=== PATIENT | male | born 1980 | race Caucasian/White ===

== ENCOUNTER 2021-01-29 13:37 | Inpatient (IN) | payer MEDICAID ==
[~2021-01-29] VITALS: Ht 190.5 cm; Wt 102.9 kg
[2021-01-29] MEDS ORDERED: TRAZ-257 PO (20:47)
[2021-01-29] MEDS ORDERED: PROP10TA73 PO (20:47)
[2021-01-29] MEDS ORDERED: SERT-158 PO (20:47)
[2021-01-29 21:06] VITALS: BP 114/64
[2021-01-29 22:08] VITALS: BP 109/72
[2021-01-30 05:55] VITALS: BP 112/77
[2021-01-30] MEDS ORDERED: METHADONE HCL 10 MG TABLET PO SCH (06:30)
[2021-01-30] MEDS ORDERED: OMEPRAZOLE 20 MG CAPSULE PO PRN (07:00)
[2021-01-30] MEDS ORDERED: BENZOCAINE/MENTHOL LOZENGE PO PRN (07:00)
[2021-01-30] MEDS ORDERED: BACITRACIN 28 GM OINTMENT TP PRN (07:00)
[2021-01-30] MEDS ORDERED: ONDANSETRON HCL 4 MG TABLET PO PRN (07:00)
[2021-01-30] MEDS ORDERED: DOCUSATE SODIUM 100 MG CAPSULE PO PRN (07:00)
[2021-01-30] MEDS ORDERED: ACETAMINOPHEN 325 MG TABLET PO PRN (07:00)
[2021-01-30] MEDS ORDERED: PETROLATUM,WHITE 28 GM JELLY TP PRN (07:00)
[2021-01-30] MEDS ORDERED: ALBUTEROL SULFATE HFA 90 MCG/PUFF 8 GM INHALER IH PRN (07:00)
[2021-01-30] MEDS ORDERED: CloNIDine HCL 0.1 MG TABLET PO PRN (07:00)
[2021-01-30] MEDS ORDERED: MAGNESIUM HYDROXIDE SUSPENSION 30 ML UDCUP PO PRN (07:00)
[2021-01-30] MEDS ORDERED: IBUPROFEN 600 MG TABLET PO PRN (07:00)
[2021-01-30] MEDS ORDERED: LOPERAMIDE HCL 2 MG CAPSULE PO PRN (07:00)
[2021-01-30] MEDS ORDERED: MAG HYDROX/AL HYDROX/SIMETH ES 30 ML SUSPENSION UDCUP PO PRN (07:00)
[2021-01-30 07:56] LABS: BASOPHILS % (AUTO) 0.4 % (0.0-2.0); HEMATOCRIT 43.8 % (41-53); HEMOGLOBIN 14.8 g/dL (13.5-17.5); LYMPHOCYTES % (AUTO) 35.5 % (22.0-44.0); MEAN CORPUSCULAR HGB CONC 33.8 G/dL (31.0-37.0); MEAN CORPUSCULAR VOLUME 89 fL (80-100); MONOCYTES # (AUTO) 0.4 K/uL (0.1-1.0); MONOCYTES % (AUTO) 7.3 % (2.0-9.0); NEUTROPHILS # (AUTO) 3.1 K/uL (1.8-7.7); NEUTROPHILS % (AUTO) 54.8 % (40.0-70.0); PLATELET COUNT (AUTO) 146 K/uL (150-450); RED BLOOD CELL COUNT(AUTO) 4.93 MIL/uL (4.50-5.90); RED CELL DISTRIBUTION WIDTH 14.1 % (11.5-14.5)
[2021-01-30 08:14] LABS: HEMOGLOBIN A1C 5.5 % (3.8-5.6)
[2021-01-30 08:29] LABS: ALANINE AMINOTRANSFERASE 24 U/L (12-78); ALBUMIN 3.5 g/dL (3.4-5.0); ALKALINE PHOSPHATASE 84 U/L (46-116); ANION GAP 7 mmol/L (8-16); ASPARTATE AMINOTRANSFERASE 18 U/L (15-37); BILIRUBIN,TOTAL 0.6 mg/dL (0.1-1.0); CALCIUM, TOTAL 8.6 mg/dL (8.8-10.5); CARBON DIOXIDE 29 mmol/L (22-29); CHLORIDE 102 mmol/L (98-107); CHOL/HDL RATIO 5.6 (4.2-7.3); CHOLESTEROL 178 mg/dL (131-200); CREATININE 0.81 mg/dL (0.60-1.30); FREE T4 (FREE THYROXINE) 0.75 ng/dL (0.76-1.46); GLOMERULAR FILTR. RATE CALC > 60 mL/min (>60); GLUCOSE,RANDOM 78 mg/dL (70-110); HDL CHOLESTEROL 32 mg/dL (40-60); LDL CHOL (CALC.) 133 mg/dL (0-130); POTASSIUM 3.8 mmol/L (3.5-5.1); SODIUM SERUM 138 mmol/L (136-145); THYROID STIMULATING HORMONE 1.53 uIU/mL (0.36-3.74); TOTAL PROTEIN, SERUM 7.1 g/dL (6.4-8.2); TRIGLYCERIDES 67 mg/dL (15-150); UREA NITROGEN, BLOOD 14 mg/dL (7-18)
[2021-01-30 08:36] VITALS: BP 101/54
[2021-01-30 10:00] VITALS: BP 106/71
[2021-01-30] MEDS: METHADONE HCL 10 MG TABLET PO SCH (11:36)
[2021-01-30] MEDS: PROPRANOLOL HCL 10 MG TABLET PO SCH (11:36)
[2021-01-30 16:13] VITALS: BP 107/60
[2021-01-30] MEDS: LORazepam 2 MG TABLET PO PRN (20:05)
[2021-01-30] MEDS ORDERED: TraZODone HCL 100 MG TABLET PO SCH (21:00)
[2021-01-30] MEDS: ZOLPIDEM TARTRATE 10 MG TABLET PO PRN (21:25)
[2021-01-31 00:14] VITALS: BP 109/62
[2021-01-31 08:07] VITALS: BP 115/68
[2021-01-31] MEDS: PROPRANOLOL HCL 10 MG TABLET PO SCH (09:18)
[2021-01-31] MEDS: SERTRALINE HCL 50 MG TABLET PO SCH (09:18)
[2021-01-31] MEDS: METHADONE HCL 10 MG TABLET PO SCH (09:19)
[2021-01-31] MEDS: LORazepam 2 MG TABLET PO PRN ×2 (12:23→21:40)
[2021-01-31 16:16] VITALS: BP 104/66
[2021-02-01 04:05] VITALS: BP 108/62
[2021-02-01 08:26] VITALS: BP 110/62
[2021-02-01] MEDS: METHADONE HCL 10 MG TABLET PO SCH (08:44)
[2021-02-01] MEDS: SERTRALINE HCL 50 MG TABLET PO SCH (08:44)
[2021-02-01] MEDS: PROPRANOLOL HCL 10 MG TABLET PO SCH (08:44)
[2021-02-01] MEDS: LORazepam 2 MG TABLET PO PRN ×3 (09:30→19:57)
[2021-02-01 17:45] VITALS: BP 110/66
[2021-02-01] MEDS: ZOLPIDEM TARTRATE 10 MG TABLET PO PRN (20:46)
[2021-02-02 06:29] VITALS: BP 119/62
[2021-02-02 08:10] VITALS: BP 102/66
[2021-02-02] MEDS: SERTRALINE HCL 50 MG TABLET PO SCH (08:40)
[2021-02-02] MEDS: METHADONE HCL 10 MG TABLET PO SCH (08:40)
[2021-02-02] MEDS: PROPRANOLOL HCL 10 MG TABLET PO SCH (08:40)
[2021-02-02] MEDS: LORazepam 2 MG TABLET PO PRN ×2 (08:40→17:09)
[2021-02-02] MEDS: NICOTINE POLACRILEX 2 MG LOZENGE PO PRN ×2 (12:42→17:08)
[2021-02-02 16:33] VITALS: BP 113/73
[2021-02-03 01:05] VITALS: BP 117/63
[2021-02-03] MEDS: LORazepam 2 MG TABLET PO PRN ×4 (01:31→20:03)
[2021-02-03] MEDS: METHADONE HCL 10 MG TABLET PO SCH (08:13)
[2021-02-03] MEDS: SERTRALINE HCL 50 MG TABLET PO SCH (08:13)
[2021-02-03] MEDS: PROPRANOLOL HCL 10 MG TABLET PO SCH (08:13)
[2021-02-03] MEDS: NICOTINE POLACRILEX 2 MG LOZENGE PO PRN ×3 (08:13→21:13)
[2021-02-03 09:19] VITALS: BP 126/80
[2021-02-03 16:29] VITALS: BP 113/67
[2021-02-03] MEDS: ZOLPIDEM TARTRATE 10 MG TABLET PO PRN (21:12)
[2021-02-04 00:38] VITALS: BP 117/69
[2021-02-04 07:13] LABS: COVID AG,FIA SOURCE NASOPHARYNGEAL
[2021-02-04] MEDS: SERTRALINE HCL 50 MG TABLET PO SCH (08:21)
[2021-02-04] MEDS: PROPRANOLOL HCL 10 MG TABLET PO SCH (08:21)
[2021-02-04] MEDS: METHADONE HCL 10 MG TABLET PO SCH (08:21)
[2021-02-04] MEDS: NICOTINE POLACRILEX 2 MG LOZENGE PO PRN ×2 (08:23→13:32)
[2021-02-04 08:32] VITALS: BP 124/85
[2021-02-04] MEDS: LORazepam 2 MG TABLET PO PRN (09:52)
[2021-02-04 16:44] VITALS: BP 102/64
[2021-02-05] MEDS: LORazepam 2 MG TABLET PO PRN ×3 (03:51→19:09)
[2021-02-05 05:52] VITALS: BP 121/93
[2021-02-05] MEDS ORDERED: METHADONE HCL 10 MG TABLET PO SCH (06:15)
[2021-02-05] MEDS: SERTRALINE HCL 50 MG TABLET PO SCH (08:11)
[2021-02-05] MEDS: PROPRANOLOL HCL 10 MG TABLET PO SCH (08:11)
[2021-02-05] MEDS: NICOTINE POLACRILEX 2 MG LOZENGE PO PRN (08:15)
[2021-02-05 08:31] VITALS: BP 124/79
[2021-02-05 16:22] VITALS: BP 102/61
[2021-02-05] MEDS: HALOPERIDOL 5 MG TABLET PO PRN (19:09)
[2021-02-05] MEDS: ZOLPIDEM TARTRATE 10 MG TABLET PO PRN (21:38)
[2021-02-06] MEDS: METHADONE HCL 10 MG TABLET PO SCH (05:57)
[2021-02-06] MEDS: LORazepam 2 MG TABLET PO PRN ×2 (06:49→17:10)
[2021-02-06] MEDS: NICOTINE POLACRILEX 2 MG LOZENGE PO PRN ×2 (06:49→17:10)
[2021-02-06 07:14] VITALS: BP 110/68
[2021-02-06] MEDS: PROPRANOLOL HCL 10 MG TABLET PO SCH (08:18)
[2021-02-06] MEDS: SERTRALINE HCL 50 MG TABLET PO SCH (08:18)
[2021-02-06 08:46] VITALS: BP 120/77
[2021-02-06 16:37] VITALS: BP 105/60
[2021-02-06] MEDS: ZOLPIDEM TARTRATE 10 MG TABLET PO PRN (20:09)
[2021-02-07 05:24] VITALS: BP 117/67
[2021-02-07] MEDS: METHADONE HCL 10 MG TABLET PO SCH (05:30)
[2021-02-07] MEDS: LORazepam 2 MG TABLET PO PRN ×3 (06:59→17:35)
[2021-02-07] MEDS: NICOTINE POLACRILEX 2 MG LOZENGE PO PRN ×3 (07:06→17:35)
[2021-02-07] MEDS: PROPRANOLOL HCL 10 MG TABLET PO SCH (08:04)
[2021-02-07] MEDS: SERTRALINE HCL 50 MG TABLET PO SCH (08:04)
[2021-02-07 08:26] VITALS: BP 123/83
[2021-02-07] MEDS: ZOLPIDEM TARTRATE 10 MG TABLET PO PRN (20:19)
[2021-02-07 20:39] VITALS: BP 105/71
[2021-02-08] MEDS: METHADONE HCL 10 MG TABLET PO SCH (05:54)
[2021-02-08 06:03] VITALS: BP 116/76
[2021-02-08] MEDS: LORazepam 2 MG TABLET PO PRN ×2 (06:45→11:53)
[2021-02-08] MEDS: NICOTINE POLACRILEX 2 MG LOZENGE PO PRN ×2 (06:59→10:33)
[2021-02-08 08:32] VITALS: BP 116/80
[2021-02-08] MEDS: SERTRALINE HCL 100 MG TABLET PO SCH (09:20)
[2021-02-08] MEDS: PROPRANOLOL HCL 10 MG TABLET PO SCH (10:23)
[2021-02-08 16:10] VITALS: BP 104/62
[2021-02-08] MEDS: ZOLPIDEM TARTRATE 10 MG TABLET PO PRN (22:10)
[2021-02-09 00:51] VITALS: BP 112/76
[2021-02-09] MEDS: METHADONE HCL 10 MG TABLET PO SCH (05:49)
[2021-02-09 07:21] LABS: COVID AG,FIA SOURCE NASOPHARYNGEAL
[2021-02-09] MEDS: LORazepam 2 MG TABLET PO PRN ×2 (07:59→16:42)
[2021-02-09] MEDS: NICOTINE POLACRILEX 2 MG LOZENGE PO PRN ×3 (07:59→16:43)
[2021-02-09] MEDS: SERTRALINE HCL 100 MG TABLET PO SCH (08:00)
[2021-02-09] MEDS: PROPRANOLOL HCL 10 MG TABLET PO SCH (08:00)
[2021-02-09 09:13] VITALS: BP 105/72
[2021-02-09 16:27] VITALS: BP 113/62
[2021-02-10 00:01] VITALS: BP 108/75
[2021-02-10] MEDS: ZOLPIDEM TARTRATE 10 MG TABLET PO PRN ×2 (00:04→20:13)
[2021-02-10] MEDS: METHADONE HCL 10 MG TABLET PO SCH (05:18)
[2021-02-10] MEDS: LORazepam 2 MG TABLET PO PRN ×2 (07:16→16:56)
[2021-02-10] MEDS: NICOTINE POLACRILEX 2 MG LOZENGE PO PRN ×3 (08:22→16:58)
[2021-02-10 08:29] VITALS: BP 134/80
[2021-02-10] MEDS: SERTRALINE HCL 100 MG TABLET PO SCH (09:00)
[2021-02-10] MEDS: VENLAFAXINE HCL 75 MG ER CAPSULE PO SCH (09:03)
[2021-02-10] MEDS: PROPRANOLOL HCL 10 MG TABLET PO SCH (09:03)
[2021-02-10 16:15] VITALS: BP 111/69
[2021-02-11] MEDS: METHADONE HCL 10 MG TABLET PO SCH (05:14)
[2021-02-11 05:38] VITALS: BP 124/75
[2021-02-11] MEDS: LORazepam 2 MG TABLET PO PRN ×3 (06:52→10:53)
[2021-02-11] MEDS: NICOTINE POLACRILEX 2 MG LOZENGE PO PRN (06:52)
[2021-02-11] MEDS: VENLAFAXINE HCL 75 MG ER CAPSULE PO SCH (08:15)
[2021-02-11] MEDS: SERTRALINE HCL 100 MG TABLET PO SCH (08:15)
[2021-02-11] MEDS: PROPRANOLOL HCL 10 MG TABLET PO SCH (08:16)
[2021-02-11 08:52] VITALS: BP 116/76
[2021-02-11 16:21] VITALS: BP 112/67
[2021-02-12 01:22] VITALS: BP 110/71
[2021-02-12] MEDS: METHADONE HCL 10 MG TABLET PO SCH (05:28)
[2021-02-12] MEDS: LORazepam 2 MG TABLET PO PRN ×2 (06:59→16:58)
[2021-02-12] MEDS: NICOTINE POLACRILEX 2 MG LOZENGE PO PRN ×2 (08:19→17:11)
[2021-02-12] MEDS: VENLAFAXINE HCL 75 MG ER CAPSULE PO SCH (09:04)
[2021-02-12] MEDS: PROPRANOLOL HCL 10 MG TABLET PO SCH (09:04)
[2021-02-12] MEDS: SERTRALINE HCL 100 MG TABLET PO SCH (09:04)
[2021-02-12 09:32] VITALS: BP 122/79
[2021-02-12 16:23] VITALS: BP 131/81
[2021-02-12] MEDS: ZOLPIDEM TARTRATE 10 MG TABLET PO PRN (20:27)
[2021-02-13] MEDS: METHADONE HCL 10 MG TABLET PO SCH (04:20)
[2021-02-13 04:29] VITALS: BP 130/80
[2021-02-13] MEDS: LORazepam 2 MG TABLET PO PRN ×2 (06:16→13:05)
[2021-02-13] MEDS: NICOTINE POLACRILEX 2 MG LOZENGE PO PRN ×4 (06:16→19:14)
[2021-02-13 08:15] VITALS: BP 113/69
[2021-02-13] MEDS: VENLAFAXINE HCL 75 MG ER CAPSULE PO SCH (08:25)
[2021-02-13] MEDS: SERTRALINE HCL 100 MG TABLET PO SCH (08:25)
[2021-02-13] MEDS: PROPRANOLOL HCL 10 MG TABLET PO SCH (08:33)
[2021-02-13 16:27] VITALS: BP 130/86
[2021-02-13] MEDS: ZOLPIDEM TARTRATE 10 MG TABLET PO PRN (20:22)
[2021-02-14 00:21] VITALS: BP 107/76
[2021-02-14] MEDS: METHADONE HCL 10 MG TABLET PO SCH (05:31)
[2021-02-14] MEDS: LORazepam 2 MG TABLET PO PRN ×2 (07:03→11:49)
[2021-02-14] MEDS: NICOTINE POLACRILEX 2 MG LOZENGE PO PRN ×3 (07:56→17:20)
[2021-02-14] MEDS: SERTRALINE HCL 100 MG TABLET PO SCH (08:05)
[2021-02-14] MEDS: PROPRANOLOL HCL 10 MG TABLET PO SCH (08:05)
[2021-02-14] MEDS: VENLAFAXINE HCL 75 MG ER CAPSULE PO SCH (08:05)
[2021-02-14 09:10] VITALS: BP 122/75
[2021-02-14 16:12] VITALS: BP 113/65
[2021-02-14] MEDS: LamoTRIgine 25 MG TABLET PO SCH (17:07)
[2021-02-14] MEDS: ZOLPIDEM TARTRATE 10 MG TABLET PO PRN (20:10)
[2021-02-15] MEDS: METHADONE HCL 10 MG TABLET PO SCH (05:18)
[2021-02-15] MEDS: NICOTINE POLACRILEX 2 MG LOZENGE PO PRN ×3 (05:19→11:02)
[2021-02-15 06:18] VITALS: BP 120/74
[2021-02-15 06:21] VITALS: BP 120/84
[2021-02-15] MEDS: LORazepam 2 MG TABLET PO PRN ×3 (06:23→16:45)
[2021-02-15] MEDS: SERTRALINE HCL 100 MG TABLET PO SCH (08:10)
[2021-02-15] MEDS: VENLAFAXINE HCL 75 MG ER CAPSULE PO SCH (08:10)
[2021-02-15] MEDS: LamoTRIgine 25 MG TABLET PO SCH ×2 (08:11→16:42)
[2021-02-15] MEDS: PROPRANOLOL HCL 10 MG TABLET PO SCH (08:11)
[2021-02-15 08:45] VITALS: BP 134/87
[2021-02-15 16:40] VITALS: BP 110/66
[2021-02-15] MEDS: ZOLPIDEM TARTRATE 10 MG TABLET PO PRN (19:50)
[2021-02-16 00:19] VITALS: BP 110/73
[2021-02-16] MEDS: LORazepam 2 MG TABLET PO PRN ×3 (00:23→13:26)
[2021-02-16] MEDS: METHADONE HCL 10 MG TABLET PO SCH (05:01)
[2021-02-16] MEDS: NICOTINE POLACRILEX 2 MG LOZENGE PO PRN ×3 (05:02→09:55)
[2021-02-16 06:24] VITALS: BP 121/71
[2021-02-16 07:20] LABS: COVID AG,FIA SOURCE NASOPHARYNGEAL
[2021-02-16] MEDS: VENLAFAXINE HCL 75 MG ER CAPSULE PO SCH (08:06)
[2021-02-16] MEDS: LamoTRIgine 25 MG TABLET PO SCH (08:07)
[2021-02-16 08:10] VITALS: BP 139/76
[2021-02-16] MEDS: PROPRANOLOL HCL 10 MG TABLET PO SCH (08:18)
[2021-02-16] MEDS: SERTRALINE HCL 100 MG TABLET PO SCH (09:40)
[2021-02-16] MEDS: HALOPERIDOL 5 MG TABLET PO PRN (11:27)
[2021-02-16] MEDS ORDERED: PROP10TA73 PO (13:09)
[2021-02-16] MEDS ORDERED: VENL-67 PO (13:10)
[2021-02-16] MEDS ORDERED: LAMO25TA25 PO (13:10)
[2021-02-16] MEDS ORDERED: SERT-162 PO (13:11)
== END 2021-02-16 14:30 | disposition home or self-care (01) | DRG 750 ==
LOC: B2S 20:40
PROVIDERS: ADMIT Psychiatry & Neurology Psychiatry; ATTEND Psychiatry & Neurology Psychiatry
DX: F25.9 Schizoaffective disorder, unspecified (principal); Z59.0 Homelessness; R45.851 Suicidal ideations; G89.29 Other chronic pain; Z20.822 Contact with and (suspected) exposure to COVID-19; F11.10 Opioid abuse, uncomplicated; F41.9 Anxiety disorder, unspecified
CPT/HCPCS: 80053; 80061; 83036; 84436; 84439; 84443; 85025; 86592; 87081; A9575; G0480

== ENCOUNTER 2021-02-27 12:34 | Inpatient (IN) | payer MEDICAID ==
[~2021-02-27] VITALS: Ht 190.5 cm; Wt 105.7 kg
[~2021-02-27 12:34] MED LIST: LAMO25TA25 PO; PROP10TA73 PO; SERT-162 PO; VENL-67 PO
[2021-02-27] MEDS ORDERED: HALOPERIDOL 5 MG TABLET PO PRN (13:00)
[2021-02-27] MEDS ORDERED: LORazepam 2 MG TABLET PO PRN (13:00)
[2021-02-27 17:32] VITALS: BP 120/77
[2021-02-27 17:33] VITALS: BP 120/77
[2021-02-27] MEDS ORDERED: BENZOCAINE/MENTHOL LOZENGE PO PRN (20:45)
[2021-02-27] MEDS ORDERED: PETROLATUM,WHITE 28 GM JELLY TP PRN (20:45)
[2021-02-27] MEDS ORDERED: IBUPROFEN 600 MG TABLET PO PRN (20:45)
[2021-02-27] MEDS ORDERED: LOPERAMIDE HCL 2 MG CAPSULE PO PRN (20:45)
[2021-02-27] MEDS ORDERED: ALBUTEROL SULFATE HFA 90 MCG/PUFF 8 GM INHALER IH PRN (20:45)
[2021-02-27] MEDS ORDERED: MAGNESIUM HYDROXIDE SUSPENSION 30 ML UDCUP PO PRN (20:45)
[2021-02-27] MEDS ORDERED: OMEPRAZOLE 20 MG CAPSULE PO PRN (20:45)
[2021-02-27] MEDS ORDERED: CloNIDine HCL 0.1 MG TABLET PO PRN (20:45)
[2021-02-27] MEDS ORDERED: ACETAMINOPHEN 325 MG TABLET PO PRN (20:45)
[2021-02-27] MEDS ORDERED: BACITRACIN 28 GM OINTMENT TP PRN (20:45)
[2021-02-27] MEDS ORDERED: ONDANSETRON HCL 4 MG TABLET PO PRN (20:45)
[2021-02-28 00:36] VITALS: BP 123/78
[2021-02-28 06:40] VITALS: BP 118/70
[2021-02-28 07:39] LABS: BASOPHILS % (AUTO) 0.3 % (0.0-2.0); EOSINOPHILS % (AUTO) 1.7 % (1.0-6.0); HEMATOCRIT 46.3 % (41-53); HEMOGLOBIN 15.6 g/dL (13.5-17.5); LYMPHOCYTES # (AUTO) 1.8 K/uL (1.0-4.8); LYMPHOCYTES % (AUTO) 24.6 % (22.0-44.0); MEAN CORPUSCULAR HEMOGLOBIN 29.7 pg (26.0-34.0); MEAN CORPUSCULAR HGB CONC 33.7 G/dL (31.0-37.0); MEAN CORPUSCULAR VOLUME 88 fL (80-100); MONOCYTES # (AUTO) 0.5 K/uL (0.1-1.0); MONOCYTES % (AUTO) 7.1 % (2.0-9.0); NEUTROPHILS # (AUTO) 4.9 K/uL (1.8-7.7); NEUTROPHILS % (AUTO) 66.3 % (40.0-70.0); PLATELET COUNT (AUTO) 167 K/uL (150-450); RED BLOOD CELL COUNT(AUTO) 5.26 MIL/uL (4.50-5.90); RED CELL DISTRIBUTION WIDTH 13.5 % (11.5-14.5)
[2021-02-28 08:10] VITALS: BP 112/76
[2021-02-28 08:10] LABS: ALANINE AMINOTRANSFERASE 24 U/L (12-78); ALBUMIN 3.5 g/dL (3.4-5.0); ALKALINE PHOSPHATASE 95 U/L (46-116); ANION GAP 8 mmol/L (8-16); ASPARTATE AMINOTRANSFERASE 18 U/L (15-37); BILIRUBIN,TOTAL 1.1 mg/dL (0.1-1.0); CALCIUM, TOTAL 8.4 mg/dL (8.8-10.5); CARBON DIOXIDE 29 mmol/L (22-29); CHLORIDE 103 mmol/L (98-107); CHOL/HDL RATIO 6.3 (4.2-7.3); CHOLESTEROL 228 mg/dL (131-200); CREATININE 0.67 mg/dL (0.60-1.30); FREE T4 (FREE THYROXINE) 1.04 ng/dL (0.76-1.46); GLOMERULAR FILTR. RATE CALC > 60 mL/min (>60); GLUCOSE,RANDOM 88 mg/dL (70-110); HDL CHOLESTEROL 36 mg/dL (40-60); LDL CHOL (CALC.) 174 mg/dL (0-130); POTASSIUM 3.8 mmol/L (3.5-5.1); SODIUM SERUM 140 mmol/L (136-145); THYROID STIMULATING HORMONE 0.45 uIU/mL (0.36-3.74); TOTAL PROTEIN, SERUM 7.4 g/dL (6.4-8.2); TRIGLYCERIDES 88 mg/dL (15-150); UREA NITROGEN, BLOOD 13 mg/dL (7-18)
[2021-02-28] MEDS ORDERED: NICOTINE 21 MG/24 HOUR PATCH TD SCH (09:00)
[2021-02-28] MEDS ORDERED: METHADONE HCL 10 MG TABLET PO ONE (09:00)
[2021-02-28] MEDS: LamoTRIgine 25 MG TABLET PO SCH ×2 (09:11→17:02)
[2021-02-28] MEDS: SERTRALINE HCL 100 MG TABLET PO SCH (09:11)
[2021-02-28] MEDS: DOCUSATE SODIUM 100 MG CAPSULE PO PRN (10:19)
[2021-02-28] MEDS: MAG HYDROX/AL HYDROX/SIMETH ES 30 ML SUSPENSION UDCUP PO PRN (10:19)
[2021-02-28] MEDS: LORazepam 1 MG TABLET PO PRN ×2 (12:31→16:45)
[2021-02-28 16:25] VITALS: BP 108/73
[2021-02-28] MEDS: ZOLPIDEM TARTRATE 10 MG TABLET PO PRN (19:50)
[2021-03-01 02:00] VITALS: BP 119/75
[2021-03-01] MEDS ORDERED: METHADONE HCL 10 MG TABLET PO SCH (05:00)
[2021-03-01 06:35] VITALS: BP 129/93
[2021-03-01] MEDS: LORazepam 1 MG TABLET PO PRN ×2 (06:38→11:38)
[2021-03-01 08:45] VITALS: BP 132/83
[2021-03-01] MEDS: LamoTRIgine 25 MG TABLET PO SCH ×2 (08:46→16:40)
[2021-03-01] MEDS: SERTRALINE HCL 100 MG TABLET PO SCH ×2 (08:46→09:00)
[2021-03-01] MEDS: NICOTINE POLACRILEX 2 MG LOZENGE PO PRN ×2 (11:38→17:58)
[2021-03-01] MEDS ORDERED: QUEtiapine FUMARATE 100 MG TABLET PO PRN (12:00)
[2021-03-01] MEDS ORDERED: GABAPENTIN 300 MG CAPSULE PO SCH (13:00)
[2021-03-01] MEDS: ACAMPROSATE CALCIUM 333 MG DR TABLET PO SCH ×2 (13:43→16:40)
[2021-03-01] MEDS: METHADONE HCL 10 MG TABLET PO SCH (13:43)
[2021-03-01 13:46] VITALS: BP 127/90
[2021-03-01] MEDS ORDERED: LORazepam 2 MG TABLET PO PRN (15:03)
[2021-03-01 16:22] VITALS: BP 151/90
[2021-03-01] MEDS: PROPRANOLOL HCL 10 MG TABLET PO SCH (16:40)
[2021-03-01] MEDS: GABAPENTIN 300 MG CAPSULE PO SCH ×2 (16:40→20:42)
[2021-03-01] MEDS: MELATONIN 5 MG TABLET PO SCH (20:43)
[2021-03-01] MEDS: OMEGA-3/DHA/EPA/FISH OIL 1,000 MG CAPSULE PO SCH (20:43)
[2021-03-01] MEDS: PARoxetine HCL 20 MG TABLET PO SCH (20:45)
[2021-03-02] VITALS (9 sets, daily range): BP systolic 112–136; BP diastolic 63–93
[2021-03-02] MEDS: METHADONE HCL 10 MG TABLET PO SCH (05:14)
[2021-03-02] MEDS: NICOTINE POLACRILEX 2 MG LOZENGE PO PRN ×2 (06:04→08:37)
[2021-03-02] MEDS: GABAPENTIN 300 MG CAPSULE PO PRN (06:04)
[2021-03-02] MEDS: ACAMPROSATE CALCIUM 333 MG DR TABLET PO SCH ×3 (08:26→16:44)
[2021-03-02] MEDS: PROPRANOLOL HCL 10 MG TABLET PO SCH ×2 (08:27→16:45)
[2021-03-02] MEDS: GABAPENTIN 300 MG CAPSULE PO SCH ×4 (08:28→20:42)
[2021-03-02] MEDS: LamoTRIgine 25 MG TABLET PO SCH ×2 (08:29→16:45)
[2021-03-02] MEDS ORDERED: DULoxetine HCL 20 MG CAPSULE PO SCH (09:00)
[2021-03-02] MEDS ORDERED: LORazepam 2 MG TABLET PO ONE (14:30)
[2021-03-02] MEDS ORDERED: LORazepam 2 MG TABLET PO PRN (14:30)
[2021-03-02] MEDS: OMEGA-3/DHA/EPA/FISH OIL 1,000 MG CAPSULE PO SCH (20:39)
[2021-03-02] MEDS: PARoxetine HCL 20 MG TABLET PO SCH (20:39)
[2021-03-02] MEDS: MELATONIN 5 MG TABLET PO SCH (20:39)
[2021-03-02] MEDS: ZOLPIDEM TARTRATE 10 MG TABLET PO PRN (20:45)
[2021-03-03 02:36] VITALS: BP 123/69
[2021-03-03 02:37] VITALS: BP 123/69
[2021-03-03] MEDS: METHADONE HCL 10 MG TABLET PO SCH (05:18)
[2021-03-03] MEDS: NICOTINE POLACRILEX 2 MG LOZENGE PO PRN ×5 (06:17→20:45)
[2021-03-03 06:45] VITALS: BP 133/80
[2021-03-03] MEDS: ACAMPROSATE CALCIUM 333 MG DR TABLET PO SCH ×3 (08:14→16:52)
[2021-03-03 08:15] VITALS: BP 124/78
[2021-03-03] MEDS: GABAPENTIN 300 MG CAPSULE PO SCH ×4 (08:15→20:43)
[2021-03-03] MEDS: LORazepam 2 MG TABLET PO SCH ×4 (08:16→20:40)
[2021-03-03] MEDS: LamoTRIgine 25 MG TABLET PO SCH ×2 (08:16→16:55)
[2021-03-03] MEDS: PROPRANOLOL HCL 10 MG TABLET PO SCH ×2 (08:16→16:53)
[2021-03-03] MEDS: DOCUSATE SODIUM 100 MG CAPSULE PO PRN (09:25)
[2021-03-03 16:15] VITALS: BP 126/77
[2021-03-03] MEDS: MELATONIN 5 MG TABLET PO SCH (20:40)
[2021-03-03] MEDS: OMEGA-3/DHA/EPA/FISH OIL 1,000 MG CAPSULE PO SCH (20:40)
[2021-03-03] MEDS: PARoxetine HCL 20 MG TABLET PO SCH (20:40)
[2021-03-03] MEDS: ZOLPIDEM TARTRATE 10 MG TABLET PO PRN (21:20)
[2021-03-04 02:30] VITALS: BP 123/93
[2021-03-04] MEDS: METHADONE HCL 10 MG TABLET PO SCH (05:15)
[2021-03-04] MEDS: NICOTINE POLACRILEX 2 MG LOZENGE PO PRN ×4 (05:32→12:09)
[2021-03-04] MEDS: LORazepam 2 MG TABLET PO PRN (05:32)
[2021-03-04 07:26] LABS: COVID AG,FIA SOURCE NASOPHARYNGEAL
[2021-03-04] MEDS: ACAMPROSATE CALCIUM 333 MG DR TABLET PO SCH ×3 (08:02→16:53)
[2021-03-04] MEDS: LORazepam 2 MG TABLET PO SCH ×4 (08:03→20:18)
[2021-03-04] MEDS: LamoTRIgine 25 MG TABLET PO SCH ×2 (08:03→16:53)
[2021-03-04] MEDS: GABAPENTIN 300 MG CAPSULE PO SCH ×2 (08:03→12:08)
[2021-03-04] MEDS: PROPRANOLOL HCL 10 MG TABLET PO SCH ×2 (08:03→16:53)
[2021-03-04 08:05] VITALS: BP 116/68
[2021-03-04 08:29] VITALS: BP 116/68
[2021-03-04 16:31] VITALS: BP 112/64
[2021-03-04] MEDS: GABAPENTIN 400 MG CAPSULE PO SCH ×2 (16:53→20:18)
[2021-03-04] MEDS: DOCUSATE SODIUM 100 MG CAPSULE PO SCH (16:53)
[2021-03-04 19:43] VITALS: BP 122/70
[2021-03-04] MEDS: OMEGA-3/DHA/EPA/FISH OIL 1,000 MG CAPSULE PO SCH (20:18)
[2021-03-04] MEDS: MELATONIN 5 MG TABLET PO SCH (20:18)
[2021-03-04] MEDS ORDERED: PARoxetine HCL 20 MG TABLET PO SCH (21:00)
[2021-03-05] VITALS (7 sets, daily range): BP systolic 112–125; BP diastolic 66–85
[2021-03-05] MEDS: METHADONE HCL 10 MG TABLET PO SCH (05:21)
[2021-03-05] MEDS: NICOTINE POLACRILEX 2 MG LOZENGE PO PRN ×5 (05:21→20:33)
[2021-03-05] MEDS: LORazepam 2 MG TABLET PO PRN (05:22)
[2021-03-05] MEDS ORDERED: LORazepam 1 MG TABLET PO PRN (07:00)
[2021-03-05] MEDS: LORazepam 1 MG TABLET PO SCH ×4 (08:44→20:29)
[2021-03-05] MEDS: ACAMPROSATE CALCIUM 333 MG DR TABLET PO SCH ×3 (08:44→16:36)
[2021-03-05] MEDS: DOCUSATE SODIUM 100 MG CAPSULE PO SCH ×2 (08:44→16:36)
[2021-03-05] MEDS: GABAPENTIN 400 MG CAPSULE PO SCH ×2 (08:44→12:20)
[2021-03-05] MEDS: PROPRANOLOL HCL 10 MG TABLET PO SCH ×2 (08:45→16:36)
[2021-03-05] MEDS: LamoTRIgine 25 MG TABLET PO SCH ×2 (08:45→16:35)
[2021-03-05] MEDS: GABAPENTIN 300 MG CAPSULE PO SCH ×2 (16:35→20:30)
[2021-03-05] MEDS: PARoxetine HCL 20 MG TABLET PO SCH (20:29)
[2021-03-05] MEDS: MELATONIN 5 MG TABLET PO SCH (20:29)
[2021-03-05] MEDS: OMEGA-3/DHA/EPA/FISH OIL 1,000 MG CAPSULE PO SCH (20:30)
[2021-03-05] MEDS: ZOLPIDEM TARTRATE 10 MG TABLET PO PRN (20:32)
[2021-03-06 01:21] VITALS: BP 135/70
[2021-03-06 01:39] VITALS: BP 135/70
[2021-03-06] MEDS: NICOTINE POLACRILEX 2 MG LOZENGE PO PRN ×4 (04:58→13:10)
[2021-03-06] MEDS: METHADONE HCL 10 MG TABLET PO SCH (05:02)
[2021-03-06] MEDS: DOCUSATE SODIUM 100 MG CAPSULE PO SCH ×2 (08:22→16:50)
[2021-03-06] MEDS: PROPRANOLOL HCL 10 MG TABLET PO SCH ×2 (08:22→16:49)
[2021-03-06] MEDS: GABAPENTIN 300 MG CAPSULE PO SCH ×4 (08:23→20:29)
[2021-03-06] MEDS: LamoTRIgine 25 MG TABLET PO SCH ×2 (08:23→16:50)
[2021-03-06] MEDS: ACAMPROSATE CALCIUM 333 MG DR TABLET PO SCH ×3 (08:23→16:50)
[2021-03-06 08:28] VITALS: BP 124/87
[2021-03-06 09:17] VITALS: BP 124/87
[2021-03-06] MEDS: LORazepam 1 MG TABLET PO PRN ×2 (10:04→15:02)
[2021-03-06 16:22] VITALS: BP 114/72
[2021-03-06 17:00] VITALS: BP 114/72
[2021-03-06] MEDS: PARoxetine HCL 20 MG TABLET PO SCH (20:29)
[2021-03-06] MEDS: OMEGA-3/DHA/EPA/FISH OIL 1,000 MG CAPSULE PO SCH (20:29)
[2021-03-06] MEDS: MELATONIN 5 MG TABLET PO SCH (20:33)
[2021-03-06] MEDS: ZOLPIDEM TARTRATE 10 MG TABLET PO PRN (20:52)
[2021-03-07 00:41] VITALS: BP 112/68
[2021-03-07 00:44] VITALS: BP 112/68
[2021-03-07] MEDS: LORazepam 1 MG TABLET PO PRN ×2 (01:46→06:34)
[2021-03-07] MEDS: METHADONE HCL 10 MG TABLET PO SCH (05:17)
[2021-03-07] MEDS: NICOTINE POLACRILEX 2 MG LOZENGE PO PRN ×2 (05:18→08:20)
[2021-03-07] MEDS: GABAPENTIN 300 MG CAPSULE PO SCH ×4 (08:20→21:12)
[2021-03-07] MEDS: ACAMPROSATE CALCIUM 333 MG DR TABLET PO SCH ×3 (08:20→17:18)
[2021-03-07] MEDS: PROPRANOLOL HCL 10 MG TABLET PO SCH ×2 (08:20→17:22)
[2021-03-07] MEDS: LamoTRIgine 25 MG TABLET PO SCH ×2 (08:20→17:19)
[2021-03-07] MEDS: DOCUSATE SODIUM 100 MG CAPSULE PO SCH ×2 (08:20→17:18)
[2021-03-07 08:29] VITALS: BP 132/86
[2021-03-07 11:16] VITALS: BP 132/86
[2021-03-07 16:36] VITALS: BP 106/68
[2021-03-07] MEDS: MELATONIN 5 MG TABLET PO SCH (21:07)
[2021-03-07] MEDS: OMEGA-3/DHA/EPA/FISH OIL 1,000 MG CAPSULE PO SCH (21:07)
[2021-03-07] MEDS: PARoxetine HCL 20 MG TABLET PO SCH (21:07)
[2021-03-07] MEDS: ZOLPIDEM TARTRATE 10 MG TABLET PO PRN (21:15)
[2021-03-08] MEDS: METHADONE HCL 10 MG TABLET PO SCH (05:05)
[2021-03-08 05:21] VITALS: BP 121/68
[2021-03-08] MEDS: GABAPENTIN 300 MG CAPSULE PO PRN (07:26)
[2021-03-08 08:28] VITALS: BP 112/75
[2021-03-08] MEDS: PROPRANOLOL HCL 10 MG TABLET PO SCH ×2 (08:54→16:36)
[2021-03-08] MEDS: DOCUSATE SODIUM 100 MG CAPSULE PO SCH ×2 (08:54→16:36)
[2021-03-08] MEDS: LamoTRIgine 25 MG TABLET PO SCH ×2 (08:54→16:36)
[2021-03-08] MEDS: ACAMPROSATE CALCIUM 333 MG DR TABLET PO SCH ×3 (09:00→16:36)
[2021-03-08] MEDS: GABAPENTIN 300 MG CAPSULE PO SCH ×4 (09:16→20:48)
[2021-03-08] MEDS ORDERED: GABA-1181 PO (12:32)
[2021-03-08] MEDS ORDERED: LAMO25TA66 PO (12:32)
[2021-03-08] MEDS ORDERED: MELA5TAB3 PO (12:32)
[2021-03-08] MEDS ORDERED: PARO-37 PO (12:32)
[2021-03-08] MEDS ORDERED: ACAM333T7 PO (12:32)
[2021-03-08 16:54] VITALS: BP 127/78
[2021-03-08] MEDS: NICOTINE POLACRILEX 2 MG LOZENGE PO PRN ×2 (18:36→20:51)
[2021-03-08] MEDS: MELATONIN 5 MG TABLET PO SCH (20:48)
[2021-03-08] MEDS: PARoxetine HCL 20 MG TABLET PO SCH (20:49)
[2021-03-08] MEDS: OMEGA-3/DHA/EPA/FISH OIL 1,000 MG CAPSULE PO SCH (20:49)
[2021-03-08] MEDS: ZOLPIDEM TARTRATE 10 MG TABLET PO PRN (20:49)
[2021-03-09 00:27] VITALS: BP 119/70
[2021-03-09] MEDS: METHADONE HCL 10 MG TABLET PO SCH (05:07)
[2021-03-09] MEDS ORDERED: PROP10TA73 PO (05:13)
[2021-03-09] MEDS: NICOTINE POLACRILEX 2 MG LOZENGE PO PRN ×4 (06:51→21:08)
[2021-03-09 08:13] VITALS: BP 125/85
[2021-03-09] MEDS: ACAMPROSATE CALCIUM 333 MG DR TABLET PO SCH ×3 (08:53→17:09)
[2021-03-09] MEDS: DOCUSATE SODIUM 100 MG CAPSULE PO SCH ×2 (08:53→17:09)
[2021-03-09] MEDS: PROPRANOLOL HCL 10 MG TABLET PO SCH ×2 (08:53→17:13)
[2021-03-09] MEDS: GABAPENTIN 300 MG CAPSULE PO SCH ×4 (08:54→20:56)
[2021-03-09] MEDS: LamoTRIgine 25 MG TABLET PO SCH ×2 (08:54→17:10)
[2021-03-09 16:55] VITALS: BP 129/86
[2021-03-09] MEDS: ZOLPIDEM TARTRATE 10 MG TABLET PO PRN (20:56)
[2021-03-09] MEDS: PARoxetine HCL 20 MG TABLET PO SCH (20:56)
[2021-03-09] MEDS: OMEGA-3/DHA/EPA/FISH OIL 1,000 MG CAPSULE PO SCH (20:56)
[2021-03-09] MEDS: MELATONIN 5 MG TABLET PO SCH (20:56)
[2021-03-10] MEDS: METHADONE HCL 10 MG TABLET PO SCH (05:12)
[2021-03-10] MEDS: NICOTINE POLACRILEX 2 MG LOZENGE PO PRN ×3 (06:11→18:17)
[2021-03-10 06:30] VITALS: BP 113/75
[2021-03-10] MEDS: PROPRANOLOL HCL 10 MG TABLET PO SCH (08:21)
[2021-03-10] MEDS: DOCUSATE SODIUM 100 MG CAPSULE PO SCH ×2 (08:21→16:56)
[2021-03-10] MEDS: LamoTRIgine 25 MG TABLET PO SCH ×2 (08:21→16:58)
[2021-03-10] MEDS: GABAPENTIN 300 MG CAPSULE PO SCH ×2 (08:21→12:17)
[2021-03-10] MEDS: ACAMPROSATE CALCIUM 333 MG DR TABLET PO SCH ×3 (08:25→17:14)
[2021-03-10 08:38] VITALS: BP 121/75
[2021-03-10 16:24] VITALS: BP 111/68
[2021-03-10] MEDS: QUEtiapine FUMARATE 25 MG TABLET PO SCH (17:14)
[2021-03-10] MEDS: GABAPENTIN 400 MG CAPSULE PO SCH (17:14)
[2021-03-10] MEDS: PREGABALIN 25 MG CAPSULE PO SCH (17:14)
[2021-03-10] MEDS: MELATONIN 5 MG TABLET PO SCH (20:35)
[2021-03-10] MEDS: OMEGA-3/DHA/EPA/FISH OIL 1,000 MG CAPSULE PO SCH (20:35)
[2021-03-10] MEDS: PARoxetine HCL 20 MG TABLET PO SCH (20:35)
[2021-03-10] MEDS: ZOLPIDEM TARTRATE 10 MG TABLET PO PRN (20:40)
[2021-03-11 05:26] VITALS: BP 108/64
[2021-03-11] MEDS: METHADONE HCL 10 MG TABLET PO SCH (05:30)
[2021-03-11 08:16] VITALS: BP 118/78
[2021-03-11] MEDS: NICOTINE POLACRILEX 2 MG LOZENGE PO PRN ×3 (09:05→20:48)
[2021-03-11] MEDS: ACAMPROSATE CALCIUM 333 MG DR TABLET PO SCH ×3 (09:08→16:25)
[2021-03-11] MEDS: DOCUSATE SODIUM 100 MG CAPSULE PO SCH ×2 (09:08→16:25)
[2021-03-11] MEDS: LamoTRIgine 25 MG TABLET PO SCH ×2 (09:08→16:25)
[2021-03-11] MEDS: QUEtiapine FUMARATE 25 MG TABLET PO SCH ×3 (09:08→16:25)
[2021-03-11] MEDS: PREGABALIN 25 MG CAPSULE PO SCH ×2 (09:08→12:51)
[2021-03-11] MEDS: GABAPENTIN 400 MG CAPSULE PO SCH ×3 (09:08→16:25)
[2021-03-11 16:19] VITALS: BP 109/69
[2021-03-11] MEDS: PREGABALIN 50 MG CAPSULE PO SCH (16:25)
[2021-03-11] MEDS: PARoxetine HCL 20 MG TABLET PO SCH (20:47)
[2021-03-11] MEDS: OMEGA-3/DHA/EPA/FISH OIL 1,000 MG CAPSULE PO SCH (20:47)
[2021-03-11] MEDS: MELATONIN 5 MG TABLET PO SCH (20:47)
[2021-03-11] MEDS: ZOLPIDEM TARTRATE 10 MG TABLET PO PRN (20:47)
[2021-03-12 01:00] VITALS: BP 114/66
[2021-03-12 05:28] VITALS: BP 121/77
[2021-03-12] MEDS: NICOTINE POLACRILEX 2 MG LOZENGE PO PRN ×5 (05:29→20:52)
[2021-03-12] MEDS: METHADONE HCL 10 MG TABLET PO SCH (05:29)
[2021-03-12 08:15] VITALS: BP 129/84
[2021-03-12] MEDS: LamoTRIgine 25 MG TABLET PO SCH ×2 (08:23→16:18)
[2021-03-12] MEDS: PREGABALIN 50 MG CAPSULE PO SCH ×2 (08:23→12:01)
[2021-03-12] MEDS: GABAPENTIN 400 MG CAPSULE PO SCH ×3 (08:23→16:18)
[2021-03-12] MEDS: DOCUSATE SODIUM 100 MG CAPSULE PO SCH ×2 (08:23→16:19)
[2021-03-12] MEDS: ACAMPROSATE CALCIUM 333 MG DR TABLET PO SCH ×3 (08:23→16:19)
[2021-03-12] MEDS: QUEtiapine FUMARATE 25 MG TABLET PO SCH ×3 (08:24→16:18)
[2021-03-12 16:06] VITALS: BP 107/74
[2021-03-12] MEDS: PREGABALIN 75 MG CAPSULE PO SCH (16:18)
[2021-03-12] MEDS: PARoxetine HCL 20 MG TABLET PO SCH (20:43)
[2021-03-12] MEDS: MELATONIN 5 MG TABLET PO SCH (20:43)
[2021-03-12] MEDS: OMEGA-3/DHA/EPA/FISH OIL 1,000 MG CAPSULE PO SCH (20:43)
[2021-03-12] MEDS: ZOLPIDEM TARTRATE 10 MG TABLET PO PRN (20:48)
[2021-03-13] MEDS: METHADONE HCL 10 MG TABLET PO SCH (05:40)
[2021-03-13] MEDS: NICOTINE POLACRILEX 2 MG LOZENGE PO PRN ×5 (05:52→16:59)
[2021-03-13 05:55] VITALS: BP 124/89
[2021-03-13] MEDS: ACAMPROSATE CALCIUM 333 MG DR TABLET PO SCH ×3 (08:07→16:58)
[2021-03-13] MEDS: LamoTRIgine 25 MG TABLET PO SCH ×2 (08:07→16:58)
[2021-03-13] MEDS: DOCUSATE SODIUM 100 MG CAPSULE PO SCH ×2 (08:07→16:58)
[2021-03-13] MEDS: QUEtiapine FUMARATE 25 MG TABLET PO SCH ×3 (08:08→16:59)
[2021-03-13] MEDS: GABAPENTIN 400 MG CAPSULE PO SCH ×3 (08:08→16:59)
[2021-03-13] MEDS: PREGABALIN 75 MG CAPSULE PO SCH ×3 (08:08→16:59)
[2021-03-13 08:22] VITALS: BP 122/88
[2021-03-13] MEDS: MAG HYDROX/AL HYDROX/SIMETH ES 30 ML SUSPENSION UDCUP PO PRN (08:43)
[2021-03-13 16:32] VITALS: BP 118/84
[2021-03-13] MEDS: OMEGA-3/DHA/EPA/FISH OIL 1,000 MG CAPSULE PO SCH (20:33)
[2021-03-13] MEDS: BENZTROPINE MESYLATE 1 MG TABLET PO SCH (20:33)
[2021-03-13] MEDS: PARoxetine HCL 20 MG TABLET PO SCH (20:33)
[2021-03-13] MEDS: MELATONIN 5 MG TABLET PO SCH (20:33)
[2021-03-13] MEDS: ZOLPIDEM TARTRATE 10 MG TABLET PO PRN (20:33)
[2021-03-14 01:22] VITALS: BP 118/76
[2021-03-14] MEDS: NICOTINE POLACRILEX 2 MG LOZENGE PO PRN ×7 (02:59→16:48)
[2021-03-14] MEDS: METHADONE HCL 10 MG TABLET PO SCH (05:43)
[2021-03-14] MEDS: LamoTRIgine 25 MG TABLET PO SCH ×2 (08:18→16:18)
[2021-03-14] MEDS: PREGABALIN 75 MG CAPSULE PO SCH ×3 (08:18→16:18)
[2021-03-14] MEDS: DOCUSATE SODIUM 100 MG CAPSULE PO SCH ×2 (08:18→16:18)
[2021-03-14] MEDS: GABAPENTIN 400 MG CAPSULE PO SCH ×3 (08:18→16:18)
[2021-03-14] MEDS: ACAMPROSATE CALCIUM 333 MG DR TABLET PO SCH ×3 (08:18→16:18)
[2021-03-14] MEDS: QUEtiapine FUMARATE 25 MG TABLET PO SCH ×3 (08:18→16:18)
[2021-03-14 08:24] VITALS: BP 128/78
[2021-03-14 16:08] VITALS: BP 108/74
[2021-03-14] MEDS: OMEGA-3/DHA/EPA/FISH OIL 1,000 MG CAPSULE PO SCH (20:49)
[2021-03-14] MEDS: MELATONIN 5 MG TABLET PO SCH (20:49)
[2021-03-14] MEDS: PARoxetine HCL 20 MG TABLET PO SCH (20:49)
[2021-03-14] MEDS: BENZTROPINE MESYLATE 1 MG TABLET PO SCH (20:49)
[2021-03-14] MEDS: ZOLPIDEM TARTRATE 10 MG TABLET PO PRN (20:49)
[2021-03-14] MEDS ORDERED: HydrOXYzine PAMOATE 25 MG CAPSULE PO PRN (21:15)
[2021-03-15 02:21] VITALS: BP 110/75
[2021-03-15 03:00] VITALS: BP 116/80
[2021-03-15] MEDS: NICOTINE POLACRILEX 2 MG LOZENGE PO PRN ×6 (03:16→20:24)
[2021-03-15] MEDS: METHADONE HCL 10 MG TABLET PO SCH (04:49)
[2021-03-15] MEDS: DOCUSATE SODIUM 100 MG CAPSULE PO SCH ×2 (08:19→16:55)
[2021-03-15] MEDS: ACAMPROSATE CALCIUM 333 MG DR TABLET PO SCH ×3 (08:19→16:54)
[2021-03-15] MEDS: QUEtiapine FUMARATE 25 MG TABLET PO SCH ×3 (08:20→16:54)
[2021-03-15] MEDS: LamoTRIgine 25 MG TABLET PO SCH (08:20)
[2021-03-15] MEDS: PREGABALIN 75 MG CAPSULE PO SCH ×2 (08:20→12:53)
[2021-03-15 08:21] VITALS: BP 106/70
[2021-03-15] MEDS: GABAPENTIN 300 MG CAPSULE PO PRN (08:24)
[2021-03-15] MEDS: GABAPENTIN 400 MG CAPSULE PO SCH ×3 (08:45→16:54)
[2021-03-15] MEDS: LamoTRIgine 100 MG TABLET PO SCH (16:55)
[2021-03-15] MEDS: ROPINIRole HCL 0.25 MG TABLET PO SCH (16:56)
[2021-03-15] MEDS: PREGABALIN 50 MG CAPSULE PO SCH (17:09)
[2021-03-15 17:33] VITALS: BP 109/63
[2021-03-15] MEDS: OMEGA-3/DHA/EPA/FISH OIL 1,000 MG CAPSULE PO SCH (20:22)
[2021-03-15] MEDS: MELATONIN 5 MG TABLET PO SCH (20:22)
[2021-03-15] MEDS: PARoxetine HCL 20 MG TABLET PO SCH (20:22)
[2021-03-15] MEDS: ZOLPIDEM TARTRATE 10 MG TABLET PO PRN (20:23)
[2021-03-15] MEDS: ROPINIRole HCL 1 MG TABLET PO SCH (20:54)
[2021-03-16 02:00] VITALS: BP 107/73
[2021-03-16] MEDS: METHADONE HCL 10 MG TABLET PO SCH (05:54)
[2021-03-16] MEDS: NICOTINE POLACRILEX 2 MG LOZENGE PO PRN ×4 (05:54→14:34)
[2021-03-16] MEDS: DOCUSATE SODIUM 100 MG CAPSULE PO SCH ×2 (08:00→16:31)
[2021-03-16] MEDS: GABAPENTIN 400 MG CAPSULE PO SCH ×3 (08:00→16:31)
[2021-03-16] MEDS: ACAMPROSATE CALCIUM 333 MG DR TABLET PO SCH ×3 (08:00→16:31)
[2021-03-16] MEDS: PREGABALIN 50 MG CAPSULE PO SCH ×3 (08:00→16:31)
[2021-03-16] MEDS: QUEtiapine FUMARATE 25 MG TABLET PO SCH ×3 (08:00→16:32)
[2021-03-16] MEDS: LamoTRIgine 100 MG TABLET PO SCH ×2 (08:00→16:31)
[2021-03-16] MEDS: ROPINIRole HCL 0.25 MG TABLET PO SCH ×3 (08:00→16:31)
[2021-03-16 09:32] VITALS: BP 107/67
[2021-03-16 16:30] VITALS: BP 110/70
[2021-03-16] MEDS ORDERED: OMEG-135 PO (16:36)
[2021-03-16] MEDS ORDERED: GABA-1201 PO (16:36)
[2021-03-16] MEDS ORDERED: PREG50 PO (16:36)
[2021-03-16] MEDS ORDERED: QUET25TA34 PO (16:36)
[2021-03-16] MEDS ORDERED: ROPI0.2535 PO (16:36)
[2021-03-16] MEDS ORDERED: ROPI1TAB46 PO (16:36)
[2021-03-16] MEDS ORDERED: LAMO100 PO (16:36)
[2021-03-16] MEDS: OMEGA-3/DHA/EPA/FISH OIL 1,000 MG CAPSULE PO SCH (20:21)
[2021-03-16] MEDS: PARoxetine HCL 20 MG TABLET PO SCH (20:21)
[2021-03-16] MEDS: ROPINIRole HCL 1 MG TABLET PO SCH (20:21)
[2021-03-16] MEDS: ZOLPIDEM TARTRATE 10 MG TABLET PO PRN (20:21)
[2021-03-16] MEDS: MELATONIN 5 MG TABLET PO SCH (20:21)
[2021-03-17 02:00] VITALS: BP 103/64
[2021-03-17] MEDS: METHADONE HCL 10 MG TABLET PO SCH (05:03)
[2021-03-17] MEDS: NICOTINE POLACRILEX 2 MG LOZENGE PO PRN ×4 (05:09→12:44)
[2021-03-17] MEDS: GABAPENTIN 300 MG CAPSULE PO PRN (06:47)
[2021-03-17 08:16] VITALS: BP 123/76
[2021-03-17] MEDS: ROPINIRole HCL 0.25 MG TABLET PO SCH ×2 (08:39→12:33)
[2021-03-17] MEDS: GABAPENTIN 400 MG CAPSULE PO SCH ×2 (08:39→12:33)
[2021-03-17] MEDS: DOCUSATE SODIUM 100 MG CAPSULE PO SCH (08:39)
[2021-03-17] MEDS: ACAMPROSATE CALCIUM 333 MG DR TABLET PO SCH ×2 (08:39→12:33)
[2021-03-17] MEDS: QUEtiapine FUMARATE 25 MG TABLET PO SCH ×2 (08:39→12:33)
[2021-03-17] MEDS: PREGABALIN 50 MG CAPSULE PO SCH ×2 (08:40→12:33)
[2021-03-17] MEDS: LamoTRIgine 100 MG TABLET PO SCH (08:40)
== END 2021-03-17 13:30 | disposition home or self-care (01) | DRG 753 ==
LOC: B2S 12:47 → B3A 03-10 21:00
PROVIDERS: ADMIT Psychiatry & Neurology Psychiatry; ATTEND Psychiatry & Neurology Psychiatry
DX: F31.4 Bipolar disorder, current episode depressed, severe, without psychotic features (principal); L51.1 Stevens-Johnson syndrome; R45.851 Suicidal ideations; R45.850 Homicidal ideations; Z91.14 Patient's other noncompliance with medication regimen; F20.9 Schizophrenia, unspecified; F41.0 Panic disorder [episodic paroxysmal anxiety]; F43.10 Post-traumatic stress disorder, unspecified; G25.81 Restless legs syndrome; G89.29 Other chronic pain; Z20.822 Contact with and (suspected) exposure to COVID-19; F41.8 Other specified anxiety disorders; Z55.9 Problems related to education and literacy, unspecified; Z59.0 Homelessness; Z65.3 Problems related to other legal circumstances; Z79.891 Long term (current) use of opiate analgesic; Z79.899 Other long term (current) drug therapy; Z88.3 Allergy status to other anti-infective agents; Z91.013 Allergy to seafood
CPT/HCPCS: 80053; 80061; 84436; 84439; 84443; 85025; 87081; A9575

== ENCOUNTER 2021-04-04 19:56 | Inpatient (IN) | payer MEDICAID ==
[~2021-04-04] VITALS: Ht 190.5 cm; Wt 109.8 kg
[~2021-04-04 19:56] MED LIST changes: +ACAM333T7 PO; +GABA-1201 PO; +LAMO100 PO; -LAMO25TA25 PO; +MELA5TAB3 PO; +OMEG-135 PO; +PARO-37 PO; +PREG50 PO; +QUET25TA36 PO; +ROPI0.2535 PO; +ROPI1TAB46 PO; -SERT-162 PO; -VENL-67 PO
[2021-04-04 20:57] LABS: GLUCOMETER DEV NAME(LOC) POC.BV
[2021-04-04] MEDS ORDERED: QUEtiapine FUMARATE 100 MG TABLET PO PRN (21:30)
[2021-04-04 22:44] VITALS: BP 126/71
[2021-04-05] MEDS: LORazepam 1 MG TABLET PO PRN ×2 (00:16→10:06)
[2021-04-05 02:33] VITALS: BP 122/73
[2021-04-05] MEDS ORDERED: ALBUTEROL SULFATE HFA 90 MCG/PUFF 8 GM INHALER IH PRN (06:45)
[2021-04-05] MEDS ORDERED: PETROLATUM,WHITE 28 GM JELLY TP PRN (06:45)
[2021-04-05] MEDS ORDERED: BACITRACIN 28 GM OINTMENT TP PRN (06:45)
[2021-04-05] MEDS ORDERED: LOPERAMIDE HCL 2 MG CAPSULE PO PRN ×2 (06:45→15:00)
[2021-04-05] MEDS ORDERED: ACETAMINOPHEN 325 MG TABLET PO PRN ×2 (06:45→15:00)
[2021-04-05] MEDS ORDERED: MAGNESIUM HYDROXIDE SUSPENSION 30 ML UDCUP PO PRN ×2 (06:45→15:00)
[2021-04-05] MEDS ORDERED: DOCUSATE SODIUM 100 MG CAPSULE PO PRN (06:45)
[2021-04-05] MEDS ORDERED: CloNIDine HCL 0.1 MG TABLET PO PRN ×2 (06:45→15:00)
[2021-04-05] MEDS ORDERED: BENZOCAINE/MENTHOL LOZENGE PO PRN (06:45)
[2021-04-05] MEDS ORDERED: MAG HYDROX/AL HYDROX/SIMETH ES 30 ML SUSPENSION UDCUP PO PRN ×3 (06:45→15:00)
[2021-04-05] MEDS ORDERED: ONDANSETRON HCL 4 MG TABLET PO PRN (06:45)
[2021-04-05] MEDS ORDERED: IBUPROFEN 600 MG TABLET PO PRN ×2 (06:45→15:00)
[2021-04-05] MEDS ORDERED: OMEPRAZOLE 20 MG CAPSULE PO PRN (06:45)
[2021-04-05 08:29] VITALS: BP 116/68
[2021-04-05] MEDS: LamoTRIgine 25 MG TABLET PO SCH ×2 (09:20→17:37)
[2021-04-05] MEDS: QUEtiapine FUMARATE 25 MG TABLET PO SCH ×2 (09:20→13:16)
[2021-04-05 14:00] VITALS: BP 116/68
[2021-04-05] MEDS ORDERED: HydrOXYzine PAMOATE 50 MG CAPSULE PO PRN (15:00)
[2021-04-05] MEDS ORDERED: ChlorproMAZINE HCL 100 MG TABLET PO PRN (15:00)
[2021-04-05] MEDS ORDERED: PROMETHAZINE HCL 25 MG TABLET PO PRN (15:00)
[2021-04-05] MEDS ORDERED: GuaiFENesin/D-METHORPHAN [SUGAR-FREE] 200-20MG/10 ML SYRUP UDCUP PO PRN (15:00)
[2021-04-05 16:35] VITALS: BP 115/72
[2021-04-05] MEDS: ChlorproMAZINE HCL 10 MG TABLET PO SCH (17:36)
[2021-04-05] MEDS: THIAMINE 100 MG TABLET PO SCH (17:36)
[2021-04-05] MEDS: CloNIDine HCL 0.1 MG TABLET PO SCH ×2 (17:37→21:39)
[2021-04-05 17:41] VITALS: BP 115/72
[2021-04-05] MEDS: MELATONIN 5 MG TABLET PO SCH (20:56)
[2021-04-05] MEDS: ChlorproMAZINE HCL 100 MG TABLET PO SCH (20:57)
[2021-04-05] MEDS ORDERED: PARoxetine HCL 20 MG TABLET PO SCH (21:00)
[2021-04-05] MEDS ORDERED: OMEGA-3/DHA/EPA/FISH OIL 1,000 MG CAPSULE PO SCH (21:00)
[2021-04-05 21:39] VITALS: BP 103/56
[2021-04-06] VITALS (8 sets, daily range): BP systolic 112–126; BP diastolic 61–71
[2021-04-06] MEDS: CloNIDine HCL 0.1 MG TABLET PO SCH ×4 (06:24→21:01)
[2021-04-06] MEDS: OMEGA-3/DHA/EPA/FISH OIL 1,000 MG CAPSULE PO SCH (08:39)
[2021-04-06] MEDS: FOLIC ACID 1 MG TABLET PO SCH (08:39)
[2021-04-06] MEDS: MULTIVITAMINS WITH MINERALS, THERAPEUTIC TABLET PO SCH (08:39)
[2021-04-06] MEDS: THIAMINE 100 MG TABLET PO SCH ×2 (08:39→17:11)
[2021-04-06] MEDS: LamoTRIgine 25 MG TABLET PO SCH ×2 (08:40→17:11)
[2021-04-06] MEDS: ChlorproMAZINE HCL 10 MG TABLET PO SCH ×2 (08:40→12:24)
[2021-04-06] MEDS: ChlorproMAZINE HCL 25 MG TABLET PO SCH (17:11)
[2021-04-06] MEDS: MELATONIN 5 MG TABLET PO SCH (21:01)
[2021-04-06] MEDS: ChlorproMAZINE HCL 100 MG TABLET PO SCH (21:01)
[2021-04-06] MEDS: PARoxetine HCL 10 MG TABLET PO SCH (21:02)
[2021-04-07 00:14] VITALS: BP 118/73
[2021-04-07 06:22] VITALS: BP 106/63
[2021-04-07] MEDS: CloNIDine HCL 0.1 MG TABLET PO SCH ×4 (06:38→22:00)
[2021-04-07] MEDS: THIAMINE 100 MG TABLET PO SCH ×2 (08:18→16:15)
[2021-04-07] MEDS: ChlorproMAZINE HCL 25 MG TABLET PO SCH ×2 (08:18→13:00)
[2021-04-07] MEDS: FOLIC ACID 1 MG TABLET PO SCH (08:18)
[2021-04-07] MEDS: MULTIVITAMINS WITH MINERALS, THERAPEUTIC TABLET PO SCH (08:18)
[2021-04-07] MEDS: OMEGA-3/DHA/EPA/FISH OIL 1,000 MG CAPSULE PO SCH (08:18)
[2021-04-07] MEDS: LamoTRIgine 25 MG TABLET PO SCH ×2 (08:18→16:15)
[2021-04-07 08:20] VITALS: BP 111/60
[2021-04-07] MEDS: HydrOXYzine PAMOATE 50 MG CAPSULE PO PRN (10:46)
[2021-04-07 15:25] VITALS: BP 134/67
[2021-04-07] MEDS ORDERED: QUEtiapine FUMARATE 100 MG TABLET PO PRN (15:45)
[2021-04-07 16:00] VITALS: BP 117/64
[2021-04-07 16:13] VITALS: BP 117/64
[2021-04-07] MEDS: QUEtiapine FUMARATE 25 MG TABLET PO SCH (16:16)
[2021-04-07] MEDS: METHOCARBAMOL 500 MG TABLET PO SCH ×2 (16:49→21:00)
[2021-04-07] MEDS: QUEtiapine FUMARATE 200 MG TABLET PO SCH (20:36)
[2021-04-07] MEDS: ZOLPIDEM TARTRATE 10 MG TABLET PO PRN ×2 (20:36→21:36)
[2021-04-07] MEDS: PARoxetine HCL 10 MG TABLET PO SCH (20:36)
[2021-04-07] MEDS: MELATONIN 5 MG TABLET PO SCH (20:36)
[2021-04-08 00:16] VITALS: BP 109/67
[2021-04-08] MEDS: CloNIDine HCL 0.1 MG TABLET PO SCH ×4 (05:29→22:52)
[2021-04-08 05:31] VITALS: BP 110/66
[2021-04-08 08:17] VITALS: BP 119/66
[2021-04-08] MEDS: METHOCARBAMOL 500 MG TABLET PO SCH ×4 (08:17→20:21)
[2021-04-08] MEDS: LamoTRIgine 25 MG TABLET PO SCH ×2 (08:17→17:08)
[2021-04-08] MEDS: MULTIVITAMINS WITH MINERALS, THERAPEUTIC TABLET PO SCH (08:18)
[2021-04-08] MEDS: OMEGA-3/DHA/EPA/FISH OIL 1,000 MG CAPSULE PO SCH (08:18)
[2021-04-08] MEDS: THIAMINE 100 MG TABLET PO SCH ×2 (08:18→17:08)
[2021-04-08] MEDS: QUEtiapine FUMARATE 25 MG TABLET PO SCH ×3 (08:18→17:08)
[2021-04-08] MEDS: FOLIC ACID 1 MG TABLET PO SCH (08:18)
[2021-04-08] MEDS: NICOTINE POLACRILEX 2 MG LOZENGE PO PRN ×5 (09:03→20:25)
[2021-04-08] MEDS ORDERED: ACAM333T7 PO (10:52)
[2021-04-08] MEDS ORDERED: OMEG-135 PO (10:52)
[2021-04-08] MEDS ORDERED: MELA5TAB3 PO (10:52)
[2021-04-08] MEDS ORDERED: QUET200T30 PO (10:52)
[2021-04-08] MEDS ORDERED: QUET25TA36 PO (10:52)
[2021-04-08] MEDS ORDERED: LAMO25TA66 PO (10:52)
[2021-04-08] MEDS ORDERED: PARO10TA71 PO (10:52)
[2021-04-08 15:14] VITALS: BP 116/68
[2021-04-08] MEDS: HydrOXYzine PAMOATE 50 MG CAPSULE PO PRN (15:20)
[2021-04-08 16:08] VITALS: BP 109/68
[2021-04-08] MEDS: PARoxetine HCL 10 MG TABLET PO SCH (20:21)
[2021-04-08] MEDS: MELATONIN 5 MG TABLET PO SCH (20:21)
[2021-04-08] MEDS: QUEtiapine FUMARATE 200 MG TABLET PO SCH (20:21)
[2021-04-08] MEDS: ZOLPIDEM TARTRATE 10 MG TABLET PO PRN (20:25)
[2021-04-09 00:45] VITALS: BP 110/66
[2021-04-09 06:00] VITALS: BP 123/78
[2021-04-09] MEDS: CloNIDine HCL 0.1 MG TABLET PO SCH (06:14)
[2021-04-09] MEDS: NICOTINE POLACRILEX 2 MG LOZENGE PO PRN (06:15)
[2021-04-09 06:45] LABS: GLUCOMETER DEV NAME(LOC) BV2S.; GLUCOSE,POINT OF CARE 215 MG/DL (70-110)
[2021-04-09] MEDS ORDERED: ACAM333T7 PO (07:58)
[2021-04-09] MEDS ORDERED: LAMO25TA25 PO (07:59)
[2021-04-09] MEDS ORDERED: MELA5TAB3 PO (07:59)
[2021-04-09] MEDS ORDERED: OMEG-135 PO (08:01)
[2021-04-09] MEDS ORDERED: PARO10TA89 PO (08:04)
[2021-04-09] MEDS ORDERED: QUET200T PO (08:05)
[2021-04-09] MEDS ORDERED: QUET25TA PO (08:05)
[2021-04-09 08:27] VITALS: BP 129/93
== END 2021-04-09 08:15 | disposition home or self-care (01) | DRG 750 ==
LOC: B2S 21:33
PROVIDERS: ADMIT Psychiatry & Neurology Psychiatry; ATTEND Psychiatry & Neurology Psychiatry
DX: F20.9 Schizophrenia, unspecified (principal); F29 Unspecified psychosis not due to a substance or known physiological condition; Z59.0 Homelessness; F32.9 Major depressive disorder, single episode, unspecified; F41.9 Anxiety disorder, unspecified; G47.00 Insomnia, unspecified; Z20.822 Contact with and (suspected) exposure to COVID-19; K59.00 Constipation, unspecified; M54.9 Dorsalgia, unspecified; G89.21 Chronic pain due to trauma; Z65.3 Problems related to other legal circumstances; Z87.891 Personal history of nicotine dependence; Z91.041 Radiographic dye allergy status; Z91.013 Allergy to seafood; Z79.899 Other long term (current) drug therapy
CPT/HCPCS: 82962; 87081; A9575

== ENCOUNTER 2022-05-12 16:43 | Inpatient (IN) | payer MEDICAID ==
[~2022-05-12] VITALS: Ht 190.5 cm; Wt 115.7 kg
[~2022-05-12 16:43] MED LIST changes: -GABA-1201 PO; -LAMO100 PO; +LAMO25TA25 PO; -MELA5TAB3 PO; +MELA5TAB40 PO; -PARO-37 PO; +PARO10TA89 PO; -PREG50 PO; -PROP10TA73 PO; +QUET200T PO; -ROPI0.2535 PO; -ROPI1TAB46 PO
[2022-05-13] MEDS ORDERED: HALOPERIDOL 5 MG TABLET PO PRN (02:15)
[2022-05-13] MEDS: ZOLPIDEM TARTRATE 10 MG TABLET PO PRN ×2 (02:45→20:31)
[2022-05-13 04:02] VITALS: BP 116/72
[2022-05-13 04:05] VITALS: BP 116/72
[2022-05-13] MEDS ORDERED: PNEUMOCOCCAL VACCINE POLYVALENT 0.5 ML VIAL [PPSV23] IM. ONE (05:30)
[2022-05-13] MEDS ORDERED: DOCUSATE SODIUM 100 MG CAPSULE PO PRN (05:45)
[2022-05-13] MEDS ORDERED: IBUPROFEN 600 MG TABLET PO PRN (05:45)
[2022-05-13] MEDS ORDERED: OMEPRAZOLE 20 MG CAPSULE PO PRN (05:45)
[2022-05-13] MEDS ORDERED: ONDANSETRON HCL 4 MG TABLET PO PRN (05:45)
[2022-05-13] MEDS ORDERED: BENZOCAINE/MENTHOL LOZENGE PO PRN (05:45)
[2022-05-13] MEDS ORDERED: CloNIDine HCL 0.1 MG TABLET PO PRN (05:45)
[2022-05-13] MEDS ORDERED: MAG HYDROX/AL HYDROX/SIMETH ES 30 ML SUSPENSION UDCUP PO PRN (05:45)
[2022-05-13] MEDS ORDERED: ALBUTEROL SULFATE HFA 90 MCG/PUFF 8 GM INHALER IH PRN (05:45)
[2022-05-13] MEDS ORDERED: BACITRACIN 28 GM OINTMENT TP PRN (05:45)
[2022-05-13] MEDS ORDERED: MAGNESIUM HYDROXIDE SUSPENSION 30 ML UDCUP PO PRN (05:45)
[2022-05-13] MEDS ORDERED: PETROLATUM,WHITE 28 GM JELLY TP PRN (05:45)
[2022-05-13] MEDS ORDERED: ACETAMINOPHEN 325 MG TABLET PO PRN (05:45)
[2022-05-13] MEDS ORDERED: LOPERAMIDE HCL 2 MG CAPSULE PO PRN (05:45)
[2022-05-13 08:24] VITALS: BP 108/65
[2022-05-13] MEDS: METHADONE HCL 10 MG/5 ML SOLUTION ORAL.SYG PO SCH (10:05)
[2022-05-13] MEDS ORDERED: NICOTINE 21 MG/24 HOUR PATCH TD PRN (11:15)
[2022-05-13] MEDS: LORazepam 2 MG TABLET PO PRN ×2 (12:18→17:06)
[2022-05-13] MEDS: NICOTINE 21 MG/24 HOUR PATCH TD SCH (12:19)
[2022-05-13 20:04] VITALS: BP 117/70
[2022-05-13] MEDS: OMEGA-3/DHA/EPA/FISH OIL 1,000 MG CAPSULE PO SCH (20:31)
[2022-05-14] MEDS: LORazepam 2 MG TABLET PO PRN ×3 (02:57→17:23)
[2022-05-14 07:11] LABS: BASOPHILS % (AUTO) 0.4 % (0.0-2.0); EOSINOPHILS % (AUTO) 2.1 % (1.0-6.0); HEMATOCRIT 42.5 % (41-53); HEMOGLOBIN 14.5 g/dL (13.5-17.5); LYMPHOCYTES # (AUTO) 1.8 K/uL (1.0-4.8); MEAN CORPUSCULAR HEMOGLOBIN 29.8 pg (26.0-34.0); MEAN CORPUSCULAR VOLUME 88 fL (80-100); MONOCYTES # (AUTO) 0.5 K/uL (0.1-1.0); MONOCYTES % (AUTO) 7.7 % (2.0-9.0); NEUTROPHILS # (AUTO) 3.5 K/uL (1.8-7.7); NEUTROPHILS % (AUTO) 59.8 % (40.0-70.0); PLATELET COUNT (AUTO) 171 K/uL (150-450); RED BLOOD CELL COUNT(AUTO) 4.85 MIL/uL (4.50-5.90); RED CELL DISTRIBUTION WIDTH 14.1 % (11.5-14.5)
[2022-05-14 07:23] LABS: HEMOGLOBIN A1C 5.8 % (3.8-5.6)
[2022-05-14 07:49] LABS: ALANINE AMINOTRANSFERASE 29 U/L (12-78); ALBUMIN 3.5 g/dL (3.4-5.0); ALKALINE PHOSPHATASE 63 U/L (46-116); ANION GAP 9 mmol/L (8-16); ASPARTATE AMINOTRANSFERASE 19 U/L (15-37); BILIRUBIN,TOTAL 0.7 mg/dL (0.1-1.0); CALCIUM, TOTAL 8.9 mg/dL (8.8-10.5); CARBON DIOXIDE 30 mmol/L (22-29); CHLORIDE 101 mmol/L (98-107); CHOLESTEROL 198 mg/dL (131-200); CREATININE 0.77 mg/dL (0.60-1.30); FREE T4 (FREE THYROXINE) 1.07 ng/dL (0.76-1.46); GLUCOSE,RANDOM 93 mg/dL (70-110); HDL CHOLESTEROL 40 mg/dL (40-60); LDL CHOL (CALC.) 143 mg/dL (0-130); POTASSIUM 4.1 mmol/L (3.5-5.1); SODIUM SERUM 140 mmol/L (136-145); THYROID STIMULATING HORMONE 2.45 uIU/mL (0.36-3.74); TOTAL PROTEIN, SERUM 7.1 g/dL (6.4-8.2); TRIGLYCERIDES 75 mg/dL (15-150); UREA NITROGEN, BLOOD 10 mg/dL (7-18)
[2022-05-14 07:51] LABS: GLOMERULAR FILTR. RATE CALC > 60 mL/min (>60)
[2022-05-14 08:09] VITALS: BP 124/77
[2022-05-14] MEDS: NICOTINE 21 MG/24 HOUR PATCH TD SCH (08:41)
[2022-05-14] MEDS: METHADONE HCL 10 MG/5 ML SOLUTION ORAL.SYG PO SCH (08:42)
[2022-05-14] MEDS ORDERED: METHADONE HCL 10 MG/5 ML SOLUTION ORAL.SYG PO SCH (09:00)
[2022-05-14] MEDS: OMEGA-3/DHA/EPA/FISH OIL 1,000 MG CAPSULE PO SCH (20:26)
[2022-05-14] MEDS: ZOLPIDEM TARTRATE 10 MG TABLET PO PRN (20:26)
[2022-05-14 20:32] VITALS: BP 126/66
[2022-05-15 02:46] VITALS: BP 112/78
[2022-05-15] MEDS: LORazepam 2 MG TABLET PO PRN ×4 (02:46→16:15)
[2022-05-15] MEDS ORDERED: METHADONE HCL 10 MG/5 ML SOLUTION ORAL.SYG PO SCH (06:00)
[2022-05-15] MEDS: NICOTINE 21 MG/24 HOUR PATCH TD SCH (08:31)
[2022-05-15 09:26] VITALS: BP 125/89
[2022-05-15] MEDS: DIVALPROEX SODIUM 500 MG DR TABLET PO SCH (16:28)
[2022-05-15] MEDS: QUEtiapine FUMARATE 200 MG TABLET PO SCH (20:35)
[2022-05-15] MEDS: OMEGA-3/DHA/EPA/FISH OIL 1,000 MG CAPSULE PO SCH (20:35)
[2022-05-15 20:44] VITALS: BP 121/83
[2022-05-16] MEDS: METHADONE HCL 10 MG/5 ML SOLUTION ORAL.SYG PO SCH (06:07)
[2022-05-16 08:05] VITALS: BP 128/82
[2022-05-16] MEDS: DIVALPROEX SODIUM 500 MG DR TABLET PO SCH ×2 (08:39→15:52)
[2022-05-16] MEDS: NICOTINE 21 MG/24 HOUR PATCH TD SCH (08:40)
[2022-05-16] MEDS: LORazepam 2 MG TABLET PO PRN ×3 (08:40→17:10)
[2022-05-16 20:15] VITALS: BP 127/75
[2022-05-16] MEDS: OMEGA-3/DHA/EPA/FISH OIL 1,000 MG CAPSULE PO SCH (20:42)
[2022-05-16] MEDS: QUEtiapine FUMARATE 200 MG TABLET PO SCH (20:42)
[2022-05-17] MEDS: LORazepam 2 MG TABLET PO PRN (04:43)
[2022-05-17] MEDS: METHADONE HCL 10 MG/5 ML SOLUTION ORAL.SYG PO SCH (05:49)
[2022-05-17] MEDS: DIVALPROEX SODIUM 500 MG DR TABLET PO SCH (08:15)
[2022-05-17] MEDS: NICOTINE 21 MG/24 HOUR PATCH TD SCH (08:16)
[2022-05-17 08:37] VITALS: BP 131/92
[2022-05-17] MEDS ORDERED: DIVA-112 PO (12:08)
[2022-05-17] MEDS ORDERED: QUET200T30 PO (12:08)
== END 2022-05-17 13:15 | disposition home or self-care (01) | DRG 753 ==
LOC: B2S 05-13 01:30
PROVIDERS: ADMIT Psychiatry & Neurology Psychiatry; ATTEND Psychiatry & Neurology Psychiatry
DX: F31.9 Bipolar disorder, unspecified (principal); F41.9 Anxiety disorder, unspecified; Z20.822 Contact with and (suspected) exposure to COVID-19; G47.00 Insomnia, unspecified; K59.00 Constipation, unspecified; Z91.013 Allergy to seafood; Z88.8 Allergy status to other drugs, medicaments and biological substances
CPT/HCPCS: 80053; 80061; 83036; 84436; 84439; 84443; 85025; 90732